=== PATIENT | male | born 1940 | race Caucasian/White ===

== ENCOUNTER → 2018-12-21 12:31 | Outpatient (CLI) | payer OTHER, SELFPAY ==
--- NOTE | 2018-12-21 | DI.MG.S_ITS ---
MALE BILATERAL DIGITAL DIAGNOSTIC MAMMOGRAM 3D/2D: 12/21/2018 CLINICAL: Right breast lump. No prior exams were available for comparison. There is gynecomastia in the right breast that correlates with the palpable area. No significant masses, calcifications, or other findings are seen in either breast. IMPRESSION: There is no mammographic evidence of malignancy. This exam was interpreted at Station ID: [id number]. NOTE: For mammograms, a report in lay terms will be sent to the patient. Approximately 15% of breast malignancies will not be visualized mammographically. In the management of a palpable breast mass, a negative mammogram must not discourage biopsy of a clinically suspicious lesion. Electronically Signed By: Elza Muhammad M.D. lk/:12/21/2018 13:24:54 letter sent: Clinical Evaluation ACR BI-RADS Category 2: Benign Finding(s) 3342F
== END ==
PROVIDERS: Family Provider Family Medicine; PCP Family Medicine; Visit Provider Family Medicine
DX: R92.8 Other abnormal and inconclusive findings on diagnostic imaging of breast (principal); N62 Hypertrophy of breast
CPT/HCPCS: 77066; G0279

== ENCOUNTER → 2020-10-19 13:15 | Outpatient (CLI) | payer OTHER, SELFPAY ==
[2020-10-19 14:56] LABS: COVID19 -Nasal RAPID Negative (Negative)
== END ==
PROVIDERS: Family Provider Family Medicine; PCP Family Medicine; Visit Provider Nurse Practitioner
DX: Z11.59 Encounter for screening for other viral diseases (principal)
CPT/HCPCS: 87635

== ENCOUNTER → 2020-11-04 13:16 | Outpatient (CLI) | payer OTHER, SELFPAY ==
[2020-11-04 13:58] LABS: COVID19 -Nasal RAPID Negative (Negative)
== END ==
PROVIDERS: Family Provider Family Medicine; PCP Family Medicine; Visit Provider Physician Assistant
DX: Z11.59 Encounter for screening for other viral diseases (principal)
CPT/HCPCS: 87635

== ENCOUNTER 2020-11-05 11:42 | Inpatient (IN) | payer OTHER, SELFPAY ==
[2020-10-09 11:52] VITALS: BMI 27.3
[2020-11-05] VITALS (16 sets, daily range): BP systolic 103–169; BP diastolic 76–107; PULSE 65–92; RESP 10–20; TEMP 35.6–36.2; O2SAT 94–99; BMI 27.3
--- NOTE | 2020-11-05 | DI.RAD.S_ITS ---
PROCEDURE: XR CERVICAL SPINE 2V OR 3V INDICATIONS: C3-4, C4-5 ACDF (ROBY-C) TECHNIQUE: 2 view(s) of the cervical spine were acquired. COMPARISON: None. FINDINGS: Spot fluoroscopic intraoperative views demonstrating interbody cage grafts at C3-C4 and C4-C5 with anterior retaining pins. There is expected intraoperative alignment Dictated by: Rush He M.D. on 11/05/2020 at 16:06 Approved by: Rush He M.D. on 11/05/2020 at 16:07
[2020-11-05] MEDS: ACETAMINOPHEN 325 MG TABLET 975 MG PO (12:04)
[2020-11-05] MEDS: LACTATED RINGERS 1,000 ML 42 ML IV (12:04)
--- NOTE | 2020-11-05 13:19 | PM.PREOP ---
Pre-operative Note COVID-19 COVID-19 status: Negative Result date/Date tested (Pos, Neg/Pending): 11/04/20 Interval Note History & Physical reviewed/Exam performed by Physician: Yes Changes to H&P: Yes H&P completed within 30 days and has changed as indicated here:: The right arm cyst looked better within a day of taking the antibiotics. About 1 day later the cyst ruptured and drained for a few days and then has been dry for over week. There is still a firm 8 mm nodule but no erythema or induration or drainage. He has been off his Coumadin and on Lovenox window. He stopped Lovenox greater than 24 hours ago.
[2020-11-05] MEDS: CEFAZOLIN 2 GM/100 ML FROZ.PIGGY IV ×2 (14:01→21:39)
--- NOTE | 2020-11-05 14:38 | SUR.OPER ---
Supine on padded OR bed, head on gel donut, arm padded and tucked at side, legs uncrossed, safety belt at thigh, tape over blanket over lower legs .
[2020-11-05] MEDS: THROMBIN (RECOMBINANT) 5,000 UNIT VIAL 5000 UNIT TOP (14:49)
[2020-11-05] MEDS: BUPIVACAINE 0.25% W/ EPI (PF) 10 ML VIAL 20 ML INJ (14:50)
[2020-11-05] MEDS: SODIUM CHLORIDE 0.9% 1,000 ML, GENTAMICIN 80 MG IRR (14:51)
--- NOTE | 2020-11-05 15:26 | PM.OP.1 ---
Operative Date/Time/Diagnoses Date of procedure: 11/05/20 Time of procedure: 15:26 Pre-op diagnosis: Cervical stenosis with myelopathy Post-op diagnosis: same Procedure & Clinicians Procedure: C3-4, C4-5 ACDF with cages Iliac crest bone graft aspirate Use of microscope Same procedure as scheduled: Yes Indications: [age] year old male with cervical myelopathy. They had failed conservative management and requested operative intervention. Risks and benefits of surgery were discussed and appropriate consents were obtained. Surgeon: Otf De Leon Sales Development Director: Rosario Aggarwal Anesthesia Type: General Operative Notes Findings: None Closure Type: primary Specimen(s): none sent Prosthetic devices, grafts, tissues, transplants, or devices: Jazmyne ROBY-C Estimated Blood Loss (mL): 5 Procedure in detail: Patient was brought to the operating room and intubated on the table. A time-out was performed. Preoperative antibiotics were given. The neck was prepped and draped in the standard sterile fashion. Using a skin fold, we made a 3 cm oblique incision on the left side. We used Bovie to go through the platysma and then did a standard anterolateral blunt dissection down to the precervical fascia. Fascia was nicked and elevated up. A marker was placed and x-ray was taken for localization. We then subperiosteally elevated up the longus colli muscles. Self-retaining retractors were placed. Columbus pins were placed. We then brought in the microscope. A scalpel used to perform an annulotomy. We then used a combination of pituitaries and curettes and Kerrison to perform a complete anterior diskectomy at C3-4. We used the bur to take down the posterior osteophytes and decorticate the endplates. We took down the PLL and used Kerrison to remove any posterior disc material and osteophytes. At the end we could from the nerve hook cephalad caudally and out the foramen and everything was opened. A small stab incision was made over the left anterior iliac crest. A Jamshidi needle was advanced into the pelvis and 2 mL of bone marrow was aspirated. We then used the trials. We then packed a 14 x 17 x 6 mm ROBY-C cage with Primagen bone graft and the iliac crest harvest. The cage was placed under fluoroscopic guidance. We then placed our two locking plates. We then moved down to the C4-5 level. Again a complete diskectomy was performed. We took down the PLL remove the posterior disc and osteophytes. The nerve hook confirmed everything was open. We trialed and placed another 14 x 17 x 6 mm cage with bone graft at this C4-5 level for the ACDF at this level. The 2 locking plates were placed. The wound was irrigated. The self-retaining retractors and Columbus pins were removed and final x-rays taken. The wound was irrigated. There was no bleeding. The carotid was beating nicely. The platysma was closed. The superficial was closed. The skin was closed. A sterile dressing was placed. They were then extubated and brought to recovery room with no complications. Complications: none Post-operative Condition: stable Disposition: PACU Plan for aftercare: Inpatient overnight. Up with PT.
[2020-11-05] MEDS: OXYCODONE IR 5 MG TABLET PO (16:28)
[2020-11-05] MEDS: LACTATED RINGERS 1,000 ML 125 ML IV (17:35)
[2020-11-05] MEDS: GABAPENTIN 600 MG TABLET PO (19:56)
[2020-11-05] MEDS: DOCUSATE 100 MG CAPSULE PO (19:56)
[2020-11-05] MEDS: SENNOSIDES 8.6 MG TABLET 17.2 MG PO (19:56)
[2020-11-05] MEDS: PROPRANOLOL 10 MG TABLET 20 MG PO (19:56)
[2020-11-05] MEDS: lisinopriL 20 MG TABLET PO (19:56)
[2020-11-05] MEDS: LOVASTATIN 20 MG TABLET 40 MG PO (19:56)
[2020-11-05] MEDS: CALCIUM CARBONATE 500 MG TAB 750 MG PO (20:02)
[2020-11-05] MEDS: HYDROCODONE/ACET 5/325 TABLET 1 TAB PO (23:32)
[2020-11-06] MEDS: LACTATED RINGERS 1,000 ML 125 ML IV (01:58)
[2020-11-06 04:18] VITALS: BP 139/93; PULSE 87; RESP 16; TEMP 36.4; O2SAT 94
[2020-11-06] MEDS: CEFAZOLIN 2 GM/100 ML FROZ.PIGGY IV (05:57)
--- NOTE | 2020-11-06 07:47 | PM.PNPO.1 ---
Subjective Subjective Date Patient Seen: 11/06/20 Time Patient Seen: 07:47 Interval history: He is doing well. No pain. However, having some difficulty swallowing. Mucus is a major problem for him usually it is just getting caught now on the back of his throat. Exam Vital Signs (past 8 hours): - 11/06/20 04:18 Temperature 97.5 F L Pulse Rate 87 Respiratory Rate 16 Blood Pressure 139/93 H Pulse Oximetry 94 Oxygen Delivery Method Room Air Oxygen Flow Rate 2 Const Orientation: alert and oriented x3 Back/Spine/Pelvis Other: CDI. No swelling. 5/5 motor both upper extremities except 4/5 left intrinsics PFSH Medical History (Updated 10/09/20 @ 12:19 by Beverly Rich RN) AAA (abdominal aortic aneurysm) Afib Arthritis Ascending aorta dilatation CVA (cerebral vascular accident) (~2007) DJD (degenerative joint disease) of cervical spine Eczema Enlarged prostate Headache, migraine Hemorrhoids HLD (hyperlipidemia) HTN (hypertension) Impaired hearing Peptic ulcer disease Rosacea Saccular aneurysm Shingles Tremor of right hand Surgical History (Updated 10/09/20 @ 12:19 by Beverly Rich RN) Hx of bilateral cataract extraction Hx of tonsillectomy Social History household members: spouse Smoking Status: Former smoker alcohol intake: current Assessment & Plan Post-op Postoperative Procedures: Procedures Operation Date: 11/05/20 13:15 Actual Procedures Side Surgeon p C34 and C45 anterior cervical discectomy and fusion Otf De Leon MD He is doing well. I am going to have speech therapy work with him today on the swallowing. As long as he does well with them, he can be discharged home. Quality VTE Deep Vein Thrombosis/Pulmonary Embolism Present on Admission: No
[2020-11-06 07:50] VITALS: BP 153/95; PULSE 75; RESP 16; TEMP 36.3; O2SAT 95
[2020-11-06 09:22] VITALS: O2SAT 96
[2020-11-06] MEDS: ASCORBIC ACID 500 MG TABLET 1000 MG PO (09:41)
[2020-11-06] MEDS: ASPIRIN EC 81 MG TABLET PO (09:41)
[2020-11-06] MEDS: GABAPENTIN 600 MG TABLET PO (09:41)
[2020-11-06] MEDS: guaiFENesin ER 600 MG TAB PO (09:41)
[2020-11-06] MEDS: DOCUSATE 100 MG CAPSULE PO (09:41)
[2020-11-06] MEDS: CHOLECALCIFEROL (VITAMIN D3) 1,000 UNIT TABLET 2000 UNIT PO (09:41)
--- NOTE | 2020-11-06 09:57 | OT.IP.EVAL ---
Current Diagnoses Other spondylosis with myelopathy, cervical region (11/05/20) Spinal stenosis, cervical region (11/05/20) Surgery Performed Operation Date: 11/05/20 13:15 Actual Procedures p C34 and C45 anterior cervical discectomy and fusion - Otf De Leon MD Past Medical History (Last Updated 10/09/20 @ 12:19 by Beverly Rich RN) AAA (abdominal aortic aneurysm) Afib Arthritis Ascending aorta dilatation CVA (cerebral vascular accident) (~2007) DJD (degenerative joint disease) of cervical spine Eczema Enlarged prostate Headache, migraine Hemorrhoids HLD (hyperlipidemia) HTN (hypertension) Impaired hearing Peptic ulcer disease Rosacea Saccular aneurysm Shingles Tremor of right hand Surgical History (Last Updated 10/09/20 @ 12:19 by Beverly Rich RN) Hx of bilateral cataract extraction Hx of tonsillectomy Occupational Therapy Inpatient Evaluation/Re-Eval M1 PT/OT-IP Prior Functional Status Start: 11/06/20 12:14 Freq: NEEDED Status: Active Protocol: Document 11/06/20 09:57 [facility] (Rec: 11/06/20 12:32 [facility] [id number]) Medical Review Prior Functional Status Medical History Reviewed Yes Communication WNL. No deficits noted. Able to make needs known. Mobility and Gait IND for all mobility and amb without AD or limitations at baseline. Activities of Daily Living and IADL's IND for all ADLs and IADLs at baseline, however having more difficulty to vacuum. Prior Functional Level (Other details) Pt enjoys wood carving. Social History Household Members spouse Living Arrangements Apartment/Condo Number of Floors (Floors) One Floor Number of Stairs To Enter/Railing? 2 VANESSA with no railing. No steps inside. Home Environment Standard Height Toilet,Walk in Shower,Built-In Shower Seat Home Equipment Grab Bars In Shower Employment Status Retired Additional Social History Comment Pt lives with , Lucina, who will be available full-time at home to assist if needed. M2 OT-IP Current Condition Start: 11/06/20 12:14 Freq: Status: Active Protocol: Document 11/06/20 09:57 [facility] (Rec: 11/06/20 12:32 [facility] [id number]) Occupational Therapy Current Condition Current Condition Evaluation Date 11/06/20 Treatment Diagnosis S/p C3-4, C4-5 ACDF Diagnosis Onset Date 11/05/20 Post Operative Precautions Cervical Spine Precautions Soft Collar for Comfort,No Heavy Lifting,Log Roll M3 OT- IP Subjective and Pain Start: 11/06/20 12:14 Freq: Status: Active Protocol: Document 11/06/20 09:57 [facility] (Rec: 11/06/20 12:32 [facility] [id number]) OT- Subjective Occupational Therapy Visit Type Type Initial Evaluation Visit Start Time 09:57 Visit Stop Time 10:23 Total Visit Minutes 26 Occupational Therapy Visit Comments Patient Comments Pt agreed to get dressed and work with OT. Pt's in the room. Patient/Caregiver Goals TO go home. OT Pain Assessment Pain When Pain Assessed At Rest Pain Present Pain Present Pain Reported Location lou of neck Intensity 1 Scale Used Numeric (0 - 10) M4 OT- IP ADL's Start: 11/06/20 12:14 Freq: Status: Active Protocol: Document 11/06/20 09:57 [facility] (Rec: 11/06/20 12:32 [facility] [id number]) OT XVR-[id number]-Xrvexyd Comments OT Self-Feeding Comments Not at meal time. OT ADL-Grooming General Evaluation Grooming Ability Independent Comments OT Grooming Comments While standing in front of the sink. Pt able to heydi/ doff his soft collar independently. OT ADL-Oral Care General Eval Oral Care Ability Standby Assistance Comments Oral Care Comments VC to spit into a cup or hinge at his hips to lean to the sink to spit. OT ADL-Dressing General Eval Upper Body Dressing Ability Standby Assistance Lower Body Dressing Ability Minimal Assistance Comments OT Dressing Comments VC to sit down in order to heydi his socks , brief and pants. Pt initially standing to put on his brief and needing CGA for balance. Pt's aware that he is stubborn and states good understanding along with pt to sit for LB dressing needs. Educated pt how to stretch his right hip flexor so able to cross his legs over easier to heydi his socks. OT ADL-Toileting Comments OT Toileting Comments NOt performed, pt did earlier and reminded pt to be mindful of his head position when wiping. OT ADL-Bathing Comments OT Bathing Comments Pt wanting to shower at home. M5 OT- IP IADL's Start: 11/06/20 12:14 Freq: Status: Active Protocol: Document 11/06/20 09:57 [facility] (Rec: 11/06/20 12:32 [facility] [id number]) OT-Instrumental Activities of Daily Living Home Safety Awareness Ability to Problem Solve Emergency Able to Problem Solve Situations Home Safety Comments Per pt's , pt a bit stubborn and she is aware to prove supervision and assist as needed. Medication Management Medication Management Comments Per pt's , pt a bit stubborn and she is aware to prove supervision and assist as needed. Money Management Money Management Comments Per pt's , pt a bit stubborn and she is aware to prove supervision and assist as needed. Meal Preparation Meal Preparation Caregiver Provides Assist Engineering Equipment Operator Engineering Equipment Operator Caregiver Provides Assist M6 OT- IP Functional Cognition Start: 11/06/20 12:14 Freq: Status: Active Protocol: Document 11/06/20 09:57 [facility] (Rec: 11/06/20 12:32 [facility] [id number]) Cognitive Factors Limiting Selfcare Function Cognitive Ability Level of Alertness Alert Patient Orientation Name,Age,Birthday,Month,Date, Year,Day of Week,Place, Situation Attention Span Ability Capable of Focused Attention, Capable of Sustained Attention Ability to Follow Commands Able to Follow Multi-Step Commands Memory Description No Deficits Noted Safety Awareness Underestimates Need for Assistance Cognitive Comments Cognitive Assessment Comments Pt a bit impulsive, needing cues to slow down and vc to sit for LB dressing needs. Pt however did state will hold off on doing his wood carving for now while he is on pain medications and also agree will just let his drive. OT- Vision and Hearing OT- Hearing Assessment OT- Hearing Assessment WFL OT- Vision Assessment Visual Acuity Glasses All The Time M7 OT- IP Mobility and Balance Start: 11/06/20 12:14 Freq: Status: Active Protocol: Document 11/06/20 09:57 [facility] (Rec: 11/06/20 12:32 [facility] [id number]) OT-Transfer Assessment Sit to and From Stand Sit to and from Stand Standby Assistance Transfers Transfer Ability Standby Assistance Technique Transfer Destination Chair Devices Transfer Assistive Devices None Comments Mobility Comments SBA to distant SBA with no device for level surfaces in the room for ambulation and transfers. OT- Balance Assessment Sitting Balance and Reactions Static Sitting Balance Ability Normal Dynamic Sitting Balance Ability Normal Standing Balance and Reactions Static Standing Balance Ability Good Dynamic Standing Balance Ability Fair Comments Other Balance Tests/Deviations/Treatment Pt having lid loss of balance : while trying to put on his underwear while standing and needing SUNNY from therapist as insisting on doing LB dressing while standing. M8 OT- IP Objective Assessments Start: 11/06/20 12:14 Freq: Status: Active Protocol: Document 11/06/20 09:57 [facility] (Rec: 11/06/20 12:32 [facility] [id number]) OT Gross Range of Motion Upper Extremity Range of Motion Assessment Within Functional Limits OT- Coordination Assessment Comments Coordination Comments WFL to open items for grooming needs. OT-Muscle Tone Assessment Muscle Tone WNL Yes OT Sensation Assessment Comments Summary Comments Pt states most of the tingling in his hands has disappeared. Noted slight right hand tremor. M9 OT- IP Assessment and Plan Start: 11/06/20 12:14 Freq: Status: Active Protocol: Document 11/06/20 09:57 [facility] (Rec: 11/06/20 12:32 [facility] [id number]) OT Summary Assessment and Plan Potential Rehabilitation Potential Excellent Analytic Complexity at Evaluation Low Summary OT Impairments Functional Mobility,Bathing Progress Towards Goals Progressing Toward Goals Assessment Summary Pt low complexity s/p C3-4, C4 -5 ACDF and main barrier are pt a bit impulsive and decreased safety awareness and needing cues to slow down and sit for LB dressing needs. Pt' s present and aware to be present for showering as pt not wanting to have a shower chair, have pt sit for LB dressing needs, and cue pt to slow down. Pt to go home with his . Goals Dressing Goal Independent Toileting Goal Independent Bathing Goal Independent Toilet Transfer Goal Independent Shower Transfer Goal Independent Patient/Caregiver Education Goal Demonstrate Post-Op Precautions,Caregiver Independent Assisting Patient Days to Meet Goals 1 Frequency of Treatment Frequency Of Treatment Once a Day Treatment Plan OT Treatment Plan ADL Training,Functional Mobility,Patient/Family Education,Discharge Planning Other Treatment Recommendations and Next Shower if still here Treatment Focus Discharge Recommendations OT Discharge Recommendations Home with Assistance Home Equipment Needs Shower chair Transportation Needs at Discharge Private Vehicle
--- NOTE | 2020-11-06 09:57 | PT.IIE ---
Current Diagnoses Other spondylosis with myelopathy, cervical region (11/05/20) Spinal stenosis, cervical region (11/05/20) Surgery Performed Operation Date: 11/05/20 13:15 Actual Procedures p C34 and C45 anterior cervical discectomy and fusion - Otf De Leon MD Surgical History (Last Updated 10/09/20 @ 12:19 by Beverly Rich RN) Hx of bilateral cataract extraction Hx of tonsillectomy Medical History (Last Updated 10/09/20 @ 12:19 by Beverly Rich RN) AAA (abdominal aortic aneurysm) Afib Arthritis Ascending aorta dilatation CVA (cerebral vascular accident) (~2007) DJD (degenerative joint disease) of cervical spine Eczema Enlarged prostate Headache, migraine Hemorrhoids HLD (hyperlipidemia) HTN (hypertension) Impaired hearing Peptic ulcer disease Rosacea Saccular aneurysm Shingles Tremor of right hand Physical Therapy Inpatient Evaluation/Re-Eval M1 PT/OT-IP Prior Functional Status Start: 11/06/20 08:32 Freq: NEEDED Status: Active Protocol: Document 11/06/20 11:17 [facility] (Rec: 11/06/20 11:44 [facility] [id number]) Medical Review Prior Functional Status Medical History Reviewed Yes Communication WNL. No deficits noted. Able to make needs known. Mobility and Gait IND for all mobility and amb without AD or limitations at baseline. Activities of Daily Living and IADL's IND for all ADLs and IADLs at baseline. Social History Household Members spouse Living Arrangements Apartment/Condo Number of Floors (Floors) One Floor Number of Stairs To Enter/Railing? 2 VANESSA with no railing. No steps inside. Home Environment Standard Height Toilet,Walk in Shower,Built-In Shower Seat Home Equipment Grab Bars In Shower Employment Status Retired Additional Social History Comment Pt lives with , Lucina, who will be available full-time at home to assist if needed. M2 PT-IP Current Condition Start: 11/06/20 08:32 Freq: NEEDED Status: Active Protocol: Document 11/06/20 11:17 [facility] (Rec: 11/06/20 11:44 [facility] [id number]) Physical Therapy Current Condition Current Condition Evaluation Date 11/06/20 Treatment Diagnosis C3-5 ACDF; Difficulty in walking Onset Date 11/05/20 Precautions Cervical Spine Precautions Soft Collar for Comfort,Soft Collar at all Times,Rigid Collar,No Heavy Lifting,Log Roll M3 PT-IP Subjective Start: 11/06/20 08:32 Freq: NEEDED Status: Active Protocol: Document 11/06/20 11:17 [facility] (Rec: 11/06/20 11:44 [facility] [id number]) Subjective Physical Therapy Visit Type Type Initial Evaluation Visit Start Time 09:24 Visit Stop Time 09:57 Total Visit Minutes 33 Notes SPT Armando led session under direct supervision of PT Magan. Pt's , Lucina, was present during session. Number of PEARL FISHERMAN Visits 0 Physical Therapy Visit Comments Patient Comments Pt is agreeable to do PT. M4 PT-IP Mobility and Gait Start: 11/06/20 08:32 Freq: NEEDED Status: Active Protocol: Document 11/06/20 11:17 [facility] (Rec: 11/06/20 11:44 [facility] [id number]) PT-Bed Mobility Assessment Rolling Type of Rolling Roll to Left Level of Assist Standby Assistance Supine to Sit Supine to Sit Standby Assistance PT-Transfer Assessment Sit to and From Stand Sit to and from Stand Standby Assistance,Contact Guard Assistance Equipment Transfer Assistive Device None,Gait Belt Orthotic/Prosthetic Devices or Brace: No Transfers Transfer Destination Chair Transfer Technique Amb Transfer Ability Level of Assist Standby Assistance Comments Mobility Comments Pt was inclined in bed upon arrival. Pt completed supine to sit at L EOB using logroll technique with SBA. Pt had mild difficulty going from sidelying to sit but was able to complete it himself. Pt performed sit to stand with CGA. Pt then amb ~220 ft in the hallway to the stairs and back to the room with SBA. Pt demonstrated normal step- through gait pattern without any noticeable deviations. Pt performed 3 steps up and down x3 with CGA and no railing. The first 2 sets, pt used step -over-step pattern and demosntrated some unsteadiness and LOB. Pt had to use railing to recover balance. Cues were provided to use step -to pattern. With the step-to pattern, pt was much more steady without any LOB. Pt agreed and demonstrated understanding. Pt amb back to the room and sat down on chair SBA. Call light placed within reach. remained in the room. Gait Assessment Gait Gait Assistance Required: Standby Assistance Distance (Feet) 220 Assistive Devices Assistive Device None,Gait Belt Orthotic/Prosthetic Devices or Brace: No Gait Deviations General Gait Pattern Within Normal Limits Comments Gait Comments See mobility comments. Stair Climbing Assessment Evaluation Level of Assist On Stairs Contact Guard Assistance Devices Stair Climbing Assistive Devices None Technique/Endurance Stair Climbing Direction Ascend and Descend Stair Climbing Technique Step Over Step,Step to Step Number of Steps Climbed 3 Query Text: Stair Climbing Set # Repetitions (reps) 3 Comments Stair Climbing Comments See mobility comments. PT-Balance Assessment Sitting Balance and Reactions Static Sitting Balance Ability Normal Dynamic Sitting Balance Ability Normal Standing Balance and Reactions Static Standing Balance Ability Normal Dynamic Standing Balance Ability Good M5 PT-IP Objective Assessments Start: 11/06/20 08:32 Freq: NEEDED Status: Active Protocol: Document 11/06/20 11:17 [facility] (Rec: 11/06/20 11:44 [facility] [id number]) Orientation Orientation/Cognition Level of Alertness Alert Orientation Name,Age,Birthday,Month,Date, Year,Day of Week,Place, Situation Language Function Ability No Deficits Noted Safety Awareness Understands Safety Issues Memory Description No Deficits Noted Gross Range of Motion Upper Extremity ROM Assessment Within Functional Limits Lower Extremity ROM Assessment Within Functional Limits Strength Upper Extremity Strength Assessment Right Impaired Shoulder L 4/5 R 5/5 Elbow L 4/5 R 5/5 Lower Extremity Strength Assessment Within Functional Limits Comments Strength Comments RUE weaker than LUE. Pt stated his pre-ex tremors has improved Coordination Assessment Gross Coordination Gross Coordination WNL Sensation Assessment Sensation Gross Sensation WNL Light Touch Intact Muscle Tone Muscle Tone WNL Yes M6 PT-IP Treatment Start: 11/06/20 08:32 Freq: NEEDED Status: Active Protocol: Document 11/06/20 11:17 [facility] (Rec: 11/06/20 11:44 [facility] [id number]) Physical Therapy Treatment Education Education Provided Precautions,Post-Op Packet, Safety M7 PT-IP Assessment and Plan Start: 11/06/20 08:32 Freq: NEEDED Status: Active Protocol: Document 11/06/20 11:17 [facility] (Rec: 11/06/20 11:44 [facility] [id number]) PT Summary Assessment and Plan Potential Rehabilitation Potential Excellent Status of Condition at Evaluation Evolving Summary Impairments Pain,ROM,Strength,Balance,Bed Mobility,Transfers,Gait, Activity Tolerance Progress Towards Goals Safe For Discharge Assessment Summary Otf is a 80 yo male POD1 s/p C3-5 ACDF with hx of abdominal aortic aneurysm, A- fib, and CVA. At baseline, pt was IND for all mobility, amb, and ADLs without AD or limitations. On evaluation, pt is SBA-CGA for all mobility, amb, and stair climbing. Pt amb ~220 ft without AD and performed 3 steps x3 without railing. Pt was slightly unsteady with [id number] pattern on stairs but was steady with step-to pattern. PT anticipates pt will be safe to d/c home with assistance once medically cleared. Frequency of Treatment Frequency Of Treatment Discharge Recommendations To Nursing Amount of Assist Needed Standby Assistance Discharge Recommendations PT Discharge Recommendations Home with Assistance Transportation Needs at Discharge Private Vehicle This session was led by SPT Armando Gomez and supervised by me PT Fariha Dickey. I personally reviewed and approved this eval noted as well.
[2020-11-06] MEDS: TERAZOSIN 5 MG CAPSULE PO (10:09)
[2020-11-06] MEDS: FINASTERIDE 5 MG TABLET PO (10:16)
[2020-11-06] MEDS: PROPRANOLOL 10 MG TABLET 20 MG PO (10:16)
[2020-11-06] MEDS: FISH OIL 1,000 MG CAPSULE 1000 MG PO (10:16)
[2020-11-06 10:17] VITALS: BP 153/95; PULSE 75
[2020-11-06] MEDS: lisinopriL 20 MG TABLET PO (10:17)
--- NOTE | 2020-11-06 11:46 | ST.IPIE ---
Visit Care Team Role Provider Type Doctor MD Shae Primary Care Provider Non-Staff Specialty: Medical Address: Phone: Fax: Email: Librado Cabrera MD Family Provider Physician Specialty: Family Practice Address: [facility], [place], [address] Email: [email or web address] Admit Provider Physician Attending Provider Referring Provider Specialty: Orthopedic Surgery Address: [address] [place] [address], [place], [address] Email: [email or web address] Current Diagnoses Other spondylosis with myelopathy, cervical region (11/05/20) Spinal stenosis, cervical region (11/05/20) Past Medical History (Last Updated 10/09/20 @ 12:19 by Beverly Rich RN) AAA (abdominal aortic aneurysm) (Medical) 4.5CM by CT 08/30/20 Afib (Medical) Arthritis (Medical) Ascending aorta dilatation (Medical) CVA (cerebral vascular accident) (Medical ~2007) 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) Eczema (Medical) Enlarged prostate (Medical) Headache, migraine (Medical) Hemorrhoids (Medical) HLD (hyperlipidemia) (Medical) HTN (hypertension) (Medical) Impaired hearing (Medical) Mild per pt Peptic ulcer disease (Medical) Rosacea (Medical) 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 De Leon Reason for Referral Swallow difficulty s/p ACDF surgery Setting Assessment Location Acute Care Visit Type Note Type Initial evaluation Patient Information Identification Type Name,ID Card History Pt is an 80-yr-old male s/p ACDF surgery day 1. The pt has history of excessive mucus buildup which he manages with OTC medication. Subjective Observations The pt was awake and sitting up in bed having just eaten ~ 25% of his breakfast. He reported increased mucus today that seemed to interfere with his ability to swallow liquids, particularly. Pt stated that he felt liquid, and sometimes solids, collect in his throat, requiring him to pause and/or swallow multiple times to clear. He did not sense food or liquid entering the airway, but did feel mucus in the airway which was requiring significant throat clearing without much benefit. He had not had his typical medication since yesterday and felt that would improve things if he could have it. Reported by Patient Other Symptoms Difficulty swallowing liquids, Difficulty swallowing solids Current Diet Dysphagia mechanical,Pureed, Thin liquids Baseline Feeding Method Independent in self-feeding Objective Assessment Mental Status Alert,Responsive,Cooperative Oral Integrity WFL Dentition Within normal limits Lip Function Within normal limits Observation of Lips at Rest Symmetrical Pucker Within normal limits Lip Retraction Within normal limits Alternating Pucker/Lip Retraction Within normal limits Tongue Function Within normal limits Observations of Tongue at Rest Within normal limits Tongue Protrusion Within normal limits Tongue Lateralization Within normal limits Jaw Function Within normal limits Observations of Jaw at Rest Within normal limits Jaw Opening Within normal limits Jaw Closing Within normal limits Jaw Lateralization Within normal limits Hard/Soft Palate Function Within normal limits Observations of Hard/Soft Palate Within normal limits Nasality Within normal limits Phonation Within normal limits Respiratory Sufficiency Within normal limits Food and Liquid Trials Position During Assessment Upright (90 degrees) Liquids Trialed Thin Solids Trialed Puree,Dysphagia Mechanical Administration Type Tea spoon,Straw,Self-feeding Oral Impairment Within normal limits Pharyngeal Impairment Moderately impaired Pharyngeal Phase Comments The pt independently consumed very small sips of ice water via straw, which he sensed to fill up his throat. He paused and swallowed again, which cleared the liquid. He consumed 3 bites of applesauce and 1 bite of egg salad without difficulty. Throughout the evaluation, including after swallows, the pt frequently cleared his throat and did exhibit mildly rough vocal quality. No wet vocal quality was perceived. Findings Swallowing Function Pharyngeal phase dysphagia Severity of Swallow Impairment Mildly-moderately impaired Contributing Factors to Swallow Excessive pharyngeal residue Impairment Comments Surgical swelling and presence of mucus are likely the primary contributors Prognosis Good Based on Cognitive status,Family support,Duration of symptoms/ severity,Other (comment) Comment Normal swallow function prior to surgery. The pt was educated orally and in writing on potential impacts of ACDF surgery on swallow and voice, s/sx of aspiration, and aspiration risks and precautions. He exhibited excellent awareness of deficits and independently demonstrated appropriate precautions with oral trials. Swallow impairments need not prevent the pt from discharging home. He was encouraged to contact his PCP should symptoms not resolve with typical medication for mucus management and reduced swelling. Impact on Safety and Functioning Risk for aspiration Comments Mild risk for aspiration, anticipated to improve over next few days Recommendations Instrumental Assessment No Swallowing Treatment No Recommended Liquids Thin Other Recommendations Soft foods initially, increasing diet texture as comfortable and per MD orders Safety Precautions/Swallowing Reduce distractions,Remain Recommendations upright (90 degrees) during all oral intake,Upright position at least 30 minutes after meals,Small bites and sips when eating,Slow rate; swallow between bites Medication Recommendations Whole in Carrier,Crushed in Carrier Discharge Recommendations Home Education Patient/Caregiver Education Described results of evaluation,Patient expressed understanding of evaluation
--- NOTE | 2020-11-06 12:30 | PC.NURSE ---
Pt is dressed and ready for discharge home with Spouse. Went over d/c instructions with Pt and Spouse-discussed d/c meds, time of last dose, reminded Pt no driving while on narcotics and to drink plenty of fluids to prevent constipation or dehydration, reviewed stroke education, s/s of infection, following ACDF precautions and follow up. Pt and Spouse denied further questions and were taken out to POV via w/c by [facility] with Spouse and all belongings.
== END 2020-11-06 12:33 | disposition home or self-care (01) | DRG 472 ==
PROVIDERS: Admitting Provider Orthopaedic Surgery; Family Provider Family Medicine; Referring Provider Orthopaedic Surgery; Visit Provider Orthopaedic Surgery
PROC: 0RG20A0 Fusion of 2 or more Cervical Vertebral Joints with Interbody Fusion Device, Anterior Approach, Anterior Column, Open Approach (ICD-10-PCS; principal; 2020-11-05 13:15)
DX: M48.02 Spinal stenosis, cervical region (principal); I48.20 Chronic atrial fibrillation, unspecified; M47.12 Other spondylosis with myelopathy, cervical region; I10 Essential (primary) hypertension; E78.5 Hyperlipidemia, unspecified; I71.4 Abdominal aortic aneurysm, without rupture; Z20.828 Contact with and (suspected) exposure to other viral communicable diseases; Z79.01 Long term (current) use of anticoagulants; Z87.891 Personal history of nicotine dependence; Z86.73 Personal history of transient ischemic attack (TIA), and cerebral infarction without residual deficits
CPT/HCPCS: 72040; 76000; 82962; 85610; 87635; 92610; 94762; 97161; 97165; 97535; C1776; C9803; A9270; J0330; J0690; J1100; J2250; J2405; J2704; J3010